=== PATIENT | female | born 1935 | race Two or more races ===

== ENCOUNTER 2020-07-01 14:20 | Outpatient (CLI) | payer SELFPAY | END 2020-07-01 23:59 | disposition home or self-care (01) | LOC: WOU 14:20 | PROVIDERS: ATTEND Surgery | DX: M79.642 Pain in left hand (principal); M25.532 Pain in left wrist; R60.0 Localized edema; R23.3 Spontaneous ecchymoses | CPT/HCPCS: G0463 ==